=== PATIENT | male | born 1960 | race African-American/Black ===

== ENCOUNTER → 2019-12-17 11:22 | Outpatient (CLI) | payer MEDICARE, OTHER, SELFPAY ==
--- NOTE | ~2019-12-17 | XR_ITS ---
XR knee RT min 4V DATE: 12/17/2019 11:51 INDICATION: Bilateral knee primary osteoarthritis TECHNIQUE: 4 views including crosstable lateral COMPARISON: None FINDINGS: There is mild periarticular spurring at the patellofemoral joint. There is mild particular spurring and severe loss of joint space at the medial compartment. No fracture or dislocation, periosteal reaction or bone destruction or joint effusion. No radiopaque intra-articular loose body or chondrocalcinosis. Superior pole patellar enthesopathy at quadriceps tendon insertion. IMPRESSION: Mild patellofemoral osteophytosis Severe osteoarthritis at the medial compartment Reviewed, dictated and finalized at location A. ER/[facility]
--- NOTE | ~2019-12-17 | XR_ITS ---
XR knee LT min 4V DATE: 12/17/2019 11:51 INDICATION: Bilateral knee primary osteoarthritis TECHNIQUE: 4 views including crosstable lateral COMPARISON: None FINDINGS: There is mild periarticular spurring at the patellofemoral joint and medial compartment and moderately severe loss of medial compartment joint space. The findings are consistent with osteoarth ritis. No fracture or dislocation. No periosteal reaction or bone destruction. No radiopaque intra-articular loose body or chondrocalcinosis. Minimal joint effusion is not excluded. IMPRESSION: Osteoarthritis involving patellofemoral and to a greater extent medial compartments Reviewed, dictated and finalized at location A. [facility] IMPRESSION: Osteoarthritis involving patellofemoral and to a greater extent med ial compartments
== END ==
PROVIDERS: PCP Internal Medicine; Visit Provider Internal Medicine
DX: M17.0 Bilateral primary osteoarthritis of knee (principal); M22.2X2 Patellofemoral disorders, left knee
CPT/HCPCS: 73564